=== PATIENT | female | born 1980 | race Caucasian/White ===

== ENCOUNTER → 2021-01-24 | Day surgery (SDC) | payer OTHER ==
[~2021-01-24] VITALS: Ht 162.6 cm; Wt 86.2 kg
[~2021-01-24] MED LIST: ALEVE220 MG PO; ASPIRIN325 MG PO; IBUPROFEN400 MG PO; PERCOCET 5-3251 EACH PO; PROBIOTIC1 EAC1 PO; ZOFRAN4 M1 PO
[2021-01-24 08:28] LABS: HCG (URINE) SCREEN NEGATIVE (NEGATIVE)
[2021-01-24 08:48] LABS: HCT 44.6 % (37.0-47.0); HGB 15.2 g/dl (12.5-16.0); MCH 31.1 pg (25.0-31.0); MCHC 34.1 g/dL (32.0-36.0); MCV 91.4 fL (78.0-100.0); MPV 9.9 fL (6.0-9.5); RBC 4.88 M/uL (4.20-5.40); RDW 13.7 % (11.5-14.0); WBC 9.3 K/uL (4.0-10.5)
== END | disposition home or self-care (01) ==
LOC: FAS 07:42
PROVIDERS: Anesthesiology
DX: S83.512A Sprain of anterior cruciate ligament of left knee, initial encounter (principal); S83.282A Other tear of lateral meniscus, current injury, left knee, initial encounter; G89.18 Other acute postprocedural pain; F17.210 Nicotine dependence, cigarettes, uncomplicated; Z79.899 Other long term (current) drug therapy; X58.XXXA Exposure to other specified factors, initial encounter; Y93.68 Activity, volleyball (beach) (court)
CPT/HCPCS: 36415; 84703; 93005; C1713; C1762; J0171; J0690; J0735; J1100; J1170; J1885; J2250; J2405; J2704; J2795; J3010; J7120

== ENCOUNTER → 2022-03-13 | Day surgery (SDC) | payer OTHER ==
[~2022-03-13] VITALS: Ht 162.6 cm; Wt 86.2 kg
[2022-03-13 09:48] LABS: HCG (URINE) SCREEN NEGATIVE (NEGATIVE)
== END | disposition home or self-care (01) ==
LOC: FAS 09:21
PROVIDERS: Anesthesiology
DX: S83.511A Sprain of anterior cruciate ligament of right knee, initial encounter (principal); S83.251A Bucket-handle tear of lateral meniscus, current injury, right knee, initial encounter; G89.18 Other acute postprocedural pain; X58.XXXA Exposure to other specified factors, initial encounter; F17.200 Nicotine dependence, unspecified, uncomplicated
CPT/HCPCS: 84703; C1713; C1762; J0690; J1170; J1885; J2250; J2405; J2550; J2704; J2795; J3010; J7120